=== PATIENT | male | born 1960 | race Caucasian/White ===

== ENCOUNTER → 2020-02-01 | Day surgery (SDC) | payer BC ==
[2020-02-01] VITALS (9 sets, daily range): BP systolic 127–138; BP diastolic 76–88
[~2020-02-01] VITALS: Ht 195.6 cm; Wt 117.9 kg
[~2020-02-01] MED LIST: Bacitracin 50000 Units Vial ONE; Bupivacaine 0.5% Inj 30 ml vial INJ ONE; CALCIUM500 M3 PO; DiphenhydrAMINE 50mg/ml Inj IVP PRN; LEVAQUIN500 MG ORAL; LR 1000ml 1,000 ML IVLG SCH; LR 1000ml ONE; Lidocaine 1% MPF 10mg/ml 5ml ONE; Lidocaine 1% Plain 30 ml INJ ONE; MULTIVITAMINS1 EAC2 ORAL; Meperidine 25mg/0.5ml Inj (FOR RIGORS ONLY) IV PRN; Midazolam 2mg/2ml Inj ONE; NS Irrig 1000ml ONE; NeoSporin Gu Irrig 1ml Amp IRRIG ONE; Sterile Water Irrig 2000ml IRRIG ONE; fentaNYL 100 mcg/2 mL IV ONE
--- NOTE | 2020-02-01 09:27 | Pre-Procedure Note/Attestation ---
Pre-Procedure Note/Attestation Complete Prior to Procedure Planned Procedure: left Procedure Narrative: Debridement of osteomyelitis second left digit Indications for Procedure Pre-Operative Diagnosis: Osteomyelitis second left digit Attestation I attest that I discussed the nature of the procedure; its benefits; risks and complications; and alternatives (and the risks and benefits of such alternatives ), prior to the procedure, with the patient (or the patient's legal administrative representative). I attest that, if there was a reasonable possibility of needing a blood transfusion, the patient (or the patient's legal administrative representative) was given the [facility] standardized written summary, pursuant to the [place] Blood Safety Act ([place] Health and Safety Code # 1645, as amended). I attest that I re-evaluated the patient just prior to the surgery and that there has been no change in the patient's H&P, except as documented below: Ibrahima Marcelino DPM Feb 01, 2020 09:27
--- NOTE | 2020-02-01 09:55 | Anethesia Preoperative Eval ---
Anesthesia Pre-op PMH/ROS General Date of Evaluation: Feb 01, 2020 Time of Evaluation: 09:10 Anesthesiologist: Davy ASA Score: ASA 3 Mallampati Score Class I : Soft palate, uvula, fauces, pillars visible Class II: Soft palate, uvula, fauces visible Class III: Soft palate, base of uvula visible Class IV: Only hard plate visible Mallampati Classification: Class III Surgeon: Ryland Diagnosis: L 2-nd toe osteomyelitis Surgical Procedure: I&D Anesthesia History: none Social History: smoking - h/o Family History: no anesthesia problems Allergies: Coded Allergies: No Known Allergies (Unverified , 02/01/20) Medications: see eMAR Patient NPO?: Yes Past Medical History Cardiovascular: Reports: HTN - [id number] Pulmonary: Denies: asthma, COPD, WADE, other Gastrointestinal/Genitourinary: Reports: GERD; Denies: CRI, ESRD, other Neurologic/Psychiatric: Reports: depression/anxiety; Denies: dementia, CVA, TIA, other Endocrine: Reports: DM - diet controlled; Denies: hypothyroidism, steroids, other HEENT: Denies: cataract (L), cataract (R), glaucoma, [place] (L[place] (R), other Hematology/Immune: Denies: anemia, DVT, bleeding disorder, other Musculoskeletal/Integumentary: Reports: OA; Denies: RA, DJD, DDD, edema, other Other: obesity - s/p gastric bypass, total loss about 200# PMH Narrative: as above PSxH Narrative: Gastric bypass, abdominoplasty Anesthesia Pre-op Phys. Exam Physician Exam Last Vital Signs Date Time Temp Pulse Resp B/P (MAP) Pulse Ox O2 Delivery O2 Flow Rate FiO2 02/01/20 08:23 Room Air 02/01/20 08:09 97.4 81 18 128/83 97 Constitutional: NAD Neurologic: CN 2-12 intact Cardiovascular: RRR, no M/R/G Respiratory: CTA Gastrointestinal: S/NT/ND Airway Exam Mallampati Score: Class III MO: full Neck: flexible ROM: limited Teeth: missing Dentures: no upper, no lower Anesthesia Pre-op A/P Labs see chart Studies Pre-op Studies: EKG - NSR Risk Assessment & Plan Assessment: ASA 3 Plan: MAC with foot block Status Change Before Surgery: No Pre-Antibiotics Drug: Ancef 2gr. Given Within 1 Hr of Incision: Yes Time Given: 09:39 Igor Bhatti MD Feb 01, 2020 09:55
--- NOTE | 2020-02-01 10:24 | Brief Operative Note ---
Immediate Post Operative Note Operative Note Pre-op Diagnosis: Osteomyelitis second left digit Procedure: Debridement of osteomyelitis second left digit Post-op Diagnosis: same as pre-op Surgeon: Ryland Anesthesiologist: Davy Anesthesia: MAC Specimen: yes Complications: none Condition: stable Fluids: 500 Estimated Blood Loss: none Drains: none Implant(s) used?: No Ibrahima Marcelino DPM Feb 01, 2020 10:24
--- NOTE | 2020-02-01 10:33 | Immediate Post-Op Evaluation ---
Immediate Post-Op Evalulation Immediate Post-Op Evalulation Procedure: I&D of L 2-nd toe osteomyielitis Date of Evaluation: Feb 01, 2020 Time of Evaluation: 10:32 IV Fluids: 500 Blood Products: none Estimated Blood Loss: min Urinary Output: none Blood Pressure Systolic: 138 Blood Pressure Diastolic: 86 Pulse Rate: 73 Respiratory Rate: 19 O2 Sat by Pulse Oximetry: 99 Temperature (Fahrenheit): 97.6 Pain Score (1-10): 1 Nausea: No Vomiting: No Patient Status: awake, patent, none Hydration Status: adequate Igor Bhatti MD Feb 01, 2020 10:33
--- NOTE | 2020-02-01 12:36 | 48 Hour Post Anesthesia Eval ---
Post Anesthesia Evaluation Procedure: I&D of L 2-nd toe osteomyielitis Date of Evaluation: Feb 01, 2020 Time of Evaluation: 12:34 Blood Pressure Systolic: 134 0: 76 Pulse Rate: 82 Respiratory Rate: 18 Temperature (Fahrenheit): 97.8 O2 Sat by Pulse Oximetry: 98 Airway: patent Nausea: No Vomiting: No Pain Intensity: 2 Hydration Status: adequate Cardiopulmonary Status: stable Mental Status/LOC: patient returned to baseline Follow-up Care/Observations: n/a Post-Anesthesia Complications: none Follow-up care needed: ready to discharge Igor Bhatti MD Feb 01, 2020 12:36
--- NOTE | 2020-02-01 16:45 | History and Physical Report ---
DATE OF ADMISSION: 02/01/2020 PODIATRIC HISTORY AND PHYSICAL HISTORY OF PRESENT ILLNESS: This is a 59-year-old white male that is admitted today for an outpatient surgery of his second left digit. The patient has been under my care since December 29, in the office for an ulcer of his second left digit and a diagnosis of osteomyelitis, second left digit. The patient suffers from neuropathy in the lower extremity and developed the ulceration and infection secondary to lack of sensation. Since he was diagnosed with osteomyelitis, the patient was referred to Infectious Disease. A PICC line was started and the patient has been receiving IV antibiotics consisting of Keflex and Levaquin. 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 The ulceration that he was diagnosed with initially had mostly healed and the condition of the toe improved to the point where the patient was consulted on debridement of necrotic bone and infected bone, second left digit. PAST MEDICAL HISTORY: Remarkable for atrial fibrillation and diabetes mellitus. The patient underwent abdominoplasty, weight-loss surgery and cardiac ablation. MEDICATIONS: None. ALLERGIES: No known drug allergies. PODIATRIC PHYSICAL EXAMINATION: VASCULAR STATUS: Dorsalis pedis and posterior tibial arteries are equally palpable measuring 2/4 bilaterally. Capillary filling time is less than 4 seconds to all digits bilaterally. Homans sign is negative. Mild varicosities are noted bilateral lower extremities. The second left digit is erythematous and edematous. NEUROLOGICAL: Reveals reduced reflexes Achilles and patellar measuring 1/4 bilaterally. The sensation is diminished to the foot and ankle bilaterally. Sensation is reduced. Proprioception is normal bilateral lower extremity. Babinski is negative. Clonus is absent bilateral lower extremity. MUSCULOSKELETAL: Reveals bilateral hallux valgus with bunion deformity. The hallux is abutting the second digit on the left foot. The second digit is dorsolaterally subluxed at the proximal interphalangeal joint. There are nonreducible hammertoe deformities of digits 2, 3, 5 bilaterally. No other skeletal deformities are noted. DERMATOLOGICAL: Reveals stage II ulcer over the medial aspect of the second left digit with hyperkeratotic skin. The wound is dry, no discharge is noted. All nails are present and healthy bilaterally. No other scars or lesions or ulcerations are present bilateral lower extremity. DIAGNOSTIC DATA: Radiographic examination reveals extensive lytic lesions of the head of the proximal phalanx second left digit and base of the intermediate phalanx second left digit. The dislocation noted at the proximal interphalangeal joint secondary to the bone destruction. ASSESSMENT: 1. Neuropathy, bilateral lower extremity. 2. Osteomyelitis, second left digit. 3. Ulcer, second left digit. PLAN: The patient is admitted today for debridement of osteomyelitis second left digit. Risks, complications and alternative of treatments were discussed with the patient. The patient was given postoperative instructions. Further IV antibiotic were continued to be administered per Infectious Disease. Bone cultures will be submitted. Postoperative medication was dispensed to the patient. The patient elected to proceed with surgery. Ibrahima Marcelino D.P.M. DR: MADELYN JOB#: [id number] CC:
--- NOTE | 2020-02-01 17:14 | Diagnostic Imaging Report ---
Indication: Postoperative Technique: 3 views left foot Comparison: none Findings: Patient is status post osteotomy of the head of the second proximal phalanx. There is some retained air from the surgical exposure within the soft tissues. There also appears to been resection of the base of the middle phalanx. There is hammertoe deformity of the third through fifth digits. No acute fractures. No dislocations. Joint spaces are preserved. There is a small plantar spur Impression: Post surgical changes, as described. No unusual features
--- NOTE | 2020-02-01 19:45 | Operative Note - Dictated ---
DATE OF OPERATION: 02/01/2020 SURGEON: Ibrahima Marcelino D.P.M. ANESTHESIOLOGIST: Igor Bhatti M.D. ANESTHESIA: Local standby. PREOPERATIVE DIAGNOSIS: Osteomyelitis, second left digit. POSTOPERATIVE DIAGNOSIS: Osteomyelitis, second left digit. PROCEDURE PERFORMED: Debridement of osteomyelitis, second left digit. DESCRIPTION OF THE OPERATION: The patient was brought to the operating room and was placed on the operating room table in the supine position. IV sedation was administered by the anesthesiologist. Local anesthesia consisting of 50/50 mix of 1% Xylocaine plain and 0.5% Marcaine plain, a total of 10 mL, was administered to the left foot. An ankle tourniquet was applied to the left lower extremity. The foot was prepped and draped in usual sterile manner. The left ankle tourniquet was inflated to 250 mmHg. Attention was then directed to the second left digit, where an approximately 4 cm dorsal linear skin incision was centered over the proximal interphalangeal joint. The incision was deepened utilizing sharp and blunt dissection, with care being taken to cauterize and ligate all bleeders. At the level of the proximal interphalangeal joint, the extensor tendon was tenotomized and reflected proximally. The tendon was also reflected distally overlying the base of the intermediate phalanx. At this point, the aerobic and anaerobic soft-tissue cultures were obtained. Utilizing a bone cutter, the necrotic and infected bone were identified and were removed in toto. The head of the proximal phalanx was removed and the base of the intermediate phalanx was removed as well. The wound was inspected to verify that all infected and necrotic bone was removed. The wound was copiously flushed utilizing antibiotic irrigation. At this point, the extensor tendon was reapproximated utilizing 4-0 Vicryl in a simple interrupted type stitch. The skin was then reapproximated utilizing 4-0 nylon in a simple interrupted type stitch. The wound was dressed utilizing an Adaptic, 4x4 gauze, and 3-inch Jovan. The left ankle tourniquet was deflated and vascular supply was noted to all digits of left foot. The patient tolerated the procedure well and left the operating room to recovery room with all vital signs stable. Ibrahima Marcelino D.P.M. DR: JOSHUA JOB#: [id number] CC:
== END | disposition home or self-care (01) ==
LOC: SUR 07:28
DX: M86.9 Osteomyelitis, unspecified (principal); E11.9 Type 2 diabetes mellitus without complications; E11.40 Type 2 diabetes mellitus with diabetic neuropathy, unspecified; L97.529 Non-pressure chronic ulcer of other part of left foot with unspecified severity; M20.12 Hallux valgus (acquired), left foot; M20.11 Hallux valgus (acquired), right foot; M20.42 Other hammer toe(s) (acquired), left foot; M20.41 Other hammer toe(s) (acquired), right foot; I10 Essential (primary) hypertension; K21.9 Gastro-esophageal reflux disease without esophagitis; M19.90 Unspecified osteoarthritis, unspecified site; F32.9 Major depressive disorder, single episode, unspecified; F41.9 Anxiety disorder, unspecified; E66.9 Obesity, unspecified; Z98.84 Bariatric surgery status; Z87.891 Personal history of nicotine dependence; Z68.30 Body mass index [BMI] 30.0-30.9, adult
CPT/HCPCS: 11044; 73630; 87070; 87075; 87205; 94003; J0690; J2001; J2250; J2704; J3010; J3490; J7120; U0002; 94150